=== PATIENT | male | born 1970 | race Caucasian/White ===

== ENCOUNTER → 2017-12-03 | Outpatient (CLI) | payer SELFPAY ==
[~2017-12-03] MED LIST: HYDR1TAB94 PO; IBUP600 PO
[2017-12-03 12:53] LABS: BASOPHILS ABSOLUTE AUTO 0.04 K/mm3 (0.00-0.23); BASOPHILS PERCENT AUTO 1 % (0-2); EOSINOPHILS ABSOLUTE AUTO 0.07 K/mm3 (0.00-0.68); EOSINOPHILS PERCENT AUTO 1 % (0-6); Hematocrit 43.7 % (37.0-53.0); Hemoglobin 14.7 g/dL (13.5-17.5); IMMATURE GRAN ABSOLUTE AUTO 0.03 K/mm3 (0.00-0.10); IMMATURE GRAN PERCENT AUTO 0 % (0-1); LYMPHOCYTES ABSOLUTE AUTO 1.74 K/mm3 (0.84-5.20); LYMPHOCYTES PERCENT AUTO 23 % (21-46); MONOCYTES ABSOLUTE AUTO 0.54 K/mm3 (0.16-1.47); MONOCYTES PERCENT AUTO 7 % (4-13); Mean Corpuscular HGB 30.6 pg (26.0-34.0); Mean Corpuscular HGB Conc 33.6 g/dL (31.5-36.5); Mean Corpuscular Volume 91 fL (80-100); Mean Platelet Volume 9.1 fL (9.1-12.4); NEUTROPHILS ABSOLUTE AUTO 5.24 K/mm3 (1.96-9.15); NEUTROPHILS PERCENT AUTO 69 % (41-73); Platelet Count 365 K/mm3 (150-400); RDW Coefficient Variation 13.1 % (11.7-14.2); RDW Standard Deviation 43.8 fL (35.1-46.3); Red Blood Cell Count 4.81 M/mm3 (4.30-5.90); White Blood Cell Count 7.66 K/mm3 (4.00-11.30)
[2017-12-03 13:52] LABS: Alanine Aminotransfer (ALT/SGP 33 U/L (12-78); Albumin, Blood 4.6 g/dL (3.4-5.0); Albumin/Globulin Ratio 1.4 (0.8-1.8); Alk Phos 85 U/L (40-126); Anion Gap 12 mmol/L (6-16); Aspartate Aminotrans (AST/SGOT 27 U/L (12-37); Bilirubin, Total 0.3 mg/dL (0.1-1.0); Blood Urea Nitrogen 11 mg/dL (8-24); Bun/Creatinine Ratio 12.8 (12.0-20.0); CHOL/HDL RATIO 2.6; CO2, Blood 30 mmol/L (21-32); Calcium, Blood 9.4 mg/dL (8.5-10.1); Chloride, Blood 102 mmol/L (98-108); Cholesterol 247 mg/dL (50-200); Creatinine, Blood 0.86 mg/dL (0.60-1.20); Globulin, Blood 3.3 g/dL (2.2-4.0); Glomerular Filtration Rate >60 (60-); Glucose, Blood 79 mg/dL (70-99); HDL Cholesterol 95 mg/dL (>39); LDL/HDL RATIO 1.5; Low Density Lipoprotein Chol 145 mg/dL (<110); Potassium, Blood 4.9 mmol/L (3.5-5.5); Sodium, Blood 144 mmol/L (136-145); Thyroid Stimulating Hormone 1.032 uIU/mL (0.360-4.800); Total Protein, Blood 7.9 g/dL (6.4-8.2); Triglycerides 34 mg/dL (30-160); Uric Acid, Blood 7.3 mg/dL (3.5-7.2); Very Low Density Lipoprot Chol 6 mg/dL (6-32)
== END ==
LOC: LAB EV 10:43
PROVIDERS: Physician Assistant
DX: Z00.00 Encounter for general adult medical examination without abnormal findings (principal); Z12.5 Encounter for screening for malignant neoplasm of prostate; M10.9 Gout, unspecified
CPT/HCPCS: 36415; 80053; 80061; 84443; 84550; 85025; G0103

== ENCOUNTER 2024-10-30 06:15 | Day surgery (SDC) | payer OTHER ==
[~2024-10-30] VITALS: Ht 175.3 cm; Wt 61.7 kg
[~2024-10-30 06:15] MED LIST changes: +Lactated Ringer's 1,000 ML IV ONE; +TRAZ50
[2024-10-30] MEDS ORDERED: CeFAZolin Sodium 2,000 MG VIAL ONE (06:20)
[2024-10-30] MEDS ORDERED: Tranexamic Acid 100 ML IV ONE (06:21)
[2024-10-30] MEDS ORDERED: Lactated Ringer's 1,000 ML IV ONE (06:45)
[2024-10-30] MEDS ORDERED: Bupivacaine 0.5% W/EPI 1:200000 SDV 30 ML Vial ONE (06:50)
[2024-10-30] MEDS ORDERED: Dexmedetomidine HCL 200 MCG / 2 ML ONE (06:50)
[2024-10-30] MEDS ORDERED: Midazolam HCl 1MG / ML 2ML Vial ONE (06:57)
[2024-10-30] MEDS ORDERED: propofoL 20 ML IV ONE (06:57)
[2024-10-30] MEDS ORDERED: Sugammadex Sodium 200 MG/2ML SDV (100 MG/ML) ONE (06:57)
[2024-10-30] MEDS ORDERED: FentaNYL Citrate 50 MCG/ML 2 ML Injection ONE (06:57)
[2024-10-30] MEDS ORDERED: Dexamethasone Sod Phos 10 MG/ML 1ML VIAL ONE (06:58)
[2024-10-30] MEDS ORDERED: Ondansetron HCl 2 MG / ML 2ML Vial ONE (06:58)
[2024-10-30] MEDS ORDERED: Rocuronium Bromide 10 MG/ML 5ML Injection IV ONE ×2 (06:58)
[2024-10-30] MEDS ORDERED: Lidocaine 2%-Epineph 1:200000 20 ML SDV ONE (07:01)
[2024-10-30] MEDS ORDERED: EPINEPhrine HCl 1 MG/ML 1ML Amp ONE (07:05)
[2024-10-30] MEDS ORDERED: Ketorolac Tromethamine 30mg Vial ONE (07:55)
--- NOTE | 2024-10-30 08:11 | NUR ---
10/30/24 0811 Giulia Streeter TXYuri 1 GM X1 STARTED IN OR BY DR MURCIA AT [id number].
--- NOTE | 2024-10-30 10:22 | NUR ---
10/30/24 1022 [facility] Cle[facility] PT CONTINUES TO DENY PAIN/NAUSEA. PT READY FOR TRANSFER TO SDU. VSS, ON RA. NO VISIBLE SIGNS OF DISTRESS NOTED.
[2024-10-30 10:35] VITALS: BP 119/86
--- NOTE | 2024-10-30 10:36 | NUR ---
10/30/24 1036 Madina Cleaning PT TRANSFERRED TO RECLINER W/ MIN ASSIST. VSS, ON RA, PT DENIES PAIN/NAUSEA. POLAR PACK TO L SHOULDER IN PLACE. NO VISIBLE SIGNS OF DISTRESS NOTED.
== END 2024-10-30 11:15 | disposition home or self-care (01) ==
LOC: ORSCSDS 06:15
PROVIDERS: Orthopaedic Surgery Sports Medicine
PROC: 0RNK4ZZ Release Left Shoulder Joint, Percutaneous Endoscopic Approach (ICD-10-PCS; principal; 2024-10-30 07:30)
PROC: 0LM24ZZ Reattachment of Left Shoulder Tendon, Percutaneous Endoscopic Approach (ICD-10-PCS; principal; 2024-10-30 07:30)
DX: M75.122 Complete rotator cuff tear or rupture of left shoulder, not specified as traumatic (principal); M75.32 Calcific tendinitis of left shoulder; I10 Essential (primary) hypertension; Z87.891 Personal history of nicotine dependence; Z79.899 Other long term (current) drug therapy
CPT/HCPCS: C1713; J0171; J0690; J1100; J1885; J2250; J2405; J2704; J3010; J7120